=== PATIENT | female | born 1925 | race Caucasian/White ===

== ENCOUNTER → 2016-04-07 | Outpatient (CLI) | payer MEDICARE ==
[2016-03-03 15:00] VITALS: BP 144/86
[~2016-04-07] MED LIST: CALCITONIN-SALMON; ERGO500012; HYDR-2666 PO; LEVO75TA PO; LEVO75TA5; LISI10TA2 PO; OMEP40CA5 PO
[2016-04-07 16:32] LABS: BASO % 1 % (0-3); EOS % 3 % (0-3); HEMATOCRIT 42.9 % (36.0-47.0); HEMOGLOBIN 13.7 g/dL (12.0-15.5); LYMPH # 2.7 x10^3/uL (1.0-4.8); LYMPH % 36 % (24-48); MEAN CORPUSCULAR HEMOGLOBIN 30 pg (25-35); MEAN CORPUSCULAR HGB CONC 32 g/dL (31-37); MEAN CORPUSCULAR VOLUME 93 fL (79-100); MONO % 9 % (0-9); NEUT % 51 % (31-73); PLATELET COUNT 223 x10^3/uL (140-400); RED BLOOD COUNT 4.62 x10^6/uL (3.50-5.40); RED CELL DISTRIBUTION WIDTH 14.3 % (11.5-14.5); WHITE BLOOD COUNT 7.7 x10^3/uL (4.0-11.0)
[2016-04-07 16:49] LABS: ALBUMIN 3.8 g/dL (3.4-5.0); ALBUMIN/GLOBULIN RATIO 0.9 (1.0-1.7); CALCIUM 9.3 mg/dL (8.5-10.1); CREATININE 1.1 mg/dL (0.6-1.0); GFR 46.8; POTASSIUM 3.8 mmol/L (3.5-5.1); TOTAL BILIRUBIN 0.4 mg/dL (0.2-1.0); TOTAL PROTEIN 7.9 g/dL (6.4-8.2)
== END | disposition home or self-care (01) ==
LOC: LAB 15:55
PROVIDERS: ATTEND Family Medicine
DX: I12.9 Hypertensive chronic kidney disease with stage 1 through stage 4 chronic kidney disease, or unspecified chronic kidney disease (principal); N18.3 Chronic kidney disease, stage 3 (moderate); E03.9 Hypothyroidism, unspecified
CPT/HCPCS: 36415; 80053; 84443; 85027

== ENCOUNTER → 2016-04-23 | Outpatient (CLI) | payer MEDICARE ==
[2016-03-03 15:00] VITALS: BP 144/86
--- NOTE | 2016-04-23 15:04 | KCIC ---
PROCEDURE CT lumbar spine without contrast. HISTORY Compression fracture, fall at home. Acute low back pain. TECHNIQUE Axial images and coronal and sagittal re-formatted images are provided. Oblique axial images through selected interspaces were performed. One or more of the following individualized dose reduction techniques were utilized for this exam: 1. Automated exposure control. 2. Adjustment of the mA and/or kV according to patient's size. 3. Use of iterative reconstruction technique. COMPARISON CT abdomen and pelvis from June 28, 2015. Lumbar radiographs from June 28, 2015. FINDINGS There are 5 lumbar type vertebral bodies. Vertebral body height from T12 through L4 is maintained. L5 compression fracture demonstrates changes of vertebroplasty. Collapse of L5 is 50 percent. Radiopaque cement extends beyond the posterior margin of the vertebral body in a left paracentral location, extraosseous component 8 millimeters transverse by 3 millimeters AP. There is no evidence of an acute compression fracture at this level or elsewhere within the lumbar spine. There is mild dextrocurvature centered at L2. There is atheromatous disease in the abdominal aorta without aneurysm. Degenerative findings will be estimated below, evaluation limited without intrathecal contrast. L1-L2: There is no canal or foraminal compromise L2-L3: Minimal disc bulge and facet hypertrophy are noted without canal or foraminal compromise. L3-L4: Mild disc bulge and facet and ligamentum flavum hypertrophy are noted. There may be minimal canal stenosis and mild foraminal narrowing. L4-L5: There is a mild disc bulge. There is mild facet and ligamentum flavum hypertrophy. There is probably mild canal stenosis and left lateral recess narrowing. There is mild to moderate right and mild left foraminal narrowing. At the level of extraosseous radiopaque cement there is left lateral recess narrowing, mild. L5-S1: Disc osteophyte complex is noted. Facet hypertrophy is greater on the right. There is moderate to severe right and minimal left foraminal narrowing. IMPRESSION 1. 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 No evidence of an acute compression fracture. 2. Degenerative disc disease and facet and ligamentum flavum hypertrophy are noted in the lumbar spine. Evaluation by MRI or post myelogram CT would be more sensitive for degree of canal and foraminal compromise. Estimates are provided above, most notable at L4-L5 and L5-S1. Electronically signed by: Gabriel Salmeron MD (Apr 23, 2016 15:03:19)
== END | disposition home or self-care (01) ==
LOC: KCIC CT 13:11
PROVIDERS: ATTEND Family Medicine
DX: M54.5 Low back pain (principal); T14.8 Other injury of unspecified body region; W19.XXXA Unspecified fall, initial encounter
CPT/HCPCS: 72131

== ENCOUNTER → 2016-06-22 | Outpatient (CLI) | payer MEDICARE ==
[2016-03-03 15:00] VITALS: BP 144/86
--- NOTE | 2016-06-22 14:12 | RAD ---
EXAM: Bilateral digital screening mammogram. HISTORY: 89-year-old female presents for screening mammography. TECHNIQUE: Full field digital craniocaudal and mediolateral oblique images of both breasts were obtained. Computer aided detection was applied. COMPARISON: 03/27/2015, 03/27/2013, 03/15/2006 FINDINGS: Breast parenchymal density: Level B - Scattered fibroglandular densities. There is no new suspicious mass, suspicious calcification or region of architectural distortion. There is focal asymmetry within the lateral left breast on the craniocaudal view which is more slightly more conspicuous compared to recent studies and similar compared to a remote study dated 03/15/2006. This is likely due to summation artifact. There is no correlate on the mediolateral oblique view. There are few benign calcifications. IMPRESSION: BI-RADS Category 2: Benign finding(s). Annual mammography is recommended if deemed clinical indicated in this 89-year-old patient. PQRS compliance statement: Patient information was entered into a reminder system with a target due date in one year for the next mammogram. Note is made that dense breast parenchyma limits the sensitivity of mammography. Mammography is a sensitive method for finding small breast cancers, but it does not detect them all and is not a substitute for careful clinical examination. A negative mammogram does not negate a clinically suspicious finding and should not result in delay in biopsying a clinically suspicious abnormality. "Our facility is accredited by the [employer] Mammography Program."
== END | disposition home or self-care (01) ==
LOC: MAMMO 12:47
PROVIDERS: ATTEND Family Medicine
DX: Z12.31 Encounter for screening mammogram for malignant neoplasm of breast (principal)
CPT/HCPCS: G0202; 77067